=== PATIENT | male | born 1995 | race Two or more races ===

== ENCOUNTER 2018-04-27 12:49 | Emergency (ER) | payer SELFPAY ==
[~2018-04-27] VITALS: Ht 177.8 cm; Wt 72.6 kg
[2018-04-27 12:57] VITALS: BP 120/88
[2018-04-27] MEDS ORDERED: Albuterol/Ipratropium 3ml neb HHN ONE (13:15)
--- NOTE | 2018-04-27 13:16 | Emergency Room Report ---
History of Present Illness General Chief Complaint: General Complaint Source: Patient Present Illness HPI 22-year-old male patient presents ER complaining of chest pain for the past week. Patient reports chest pain is in the middle his chest on the left side, states is worse with leaning to the left side and forward. Reports symptoms began after quitting smoking marijuana one week ago, denies smoking cigarettes or nicotine products. Denies history of heart attack, SC, stroke, heart disease , asthma. Reports difficulty breathing during this time. Denies fever, abdominal pain, headache. Denies drinking, alcohol use, drug use. Denies taking blood thinner medications, states has not taken any medication for relief of symptoms.reports intermittent cough during this time. Denies hemoptysis. Reports dry cough. reports he is not sure if its "anxiety related" . Denies history of anxiety. Denies thoughts of hurting himself or others. Allergies: Coded Allergies: No Known Allergies (Unverified , 04/27/18) Patient History Past Medical History: see triage record Reviewed Nursing Documentation: PMH: Agreed; PSxH: Agreed Nursing Documentation-PMH Past Medical History: No Stated History Review of Systems All Other Systems: negative except mentioned in HPI Physical Exam Vital Signs Date Time Temp Pulse Resp B/P (MAP) Pulse Ox O2 Delivery O2 Flow Rate FiO2 04/27/18 12:55 98.6 87 16 120/88 97 Room Air Sp02 EP Interpretation: reviewed, normal General Appearance: well appearing, no apparent distress, alert, GCS 15, non- toxic Head: normocephalic, atraumatic Eyes: bilateral eye normal inspection, bilateral eye PERRL ENT: hearing grossly normal, normal pharynx, no angioedema, normal voice, uvula midline, moist mucus membranes Neck: full range of motion, no bony tend Respiratory: lungs clear, normal breath sounds, no rhonchi, no respiratory distress, no accessory muscle use, no wheezing, speaking full sentences Cardiovascular #1: regular rate, rhythm, no edema Gastrointestinal: non tender, soft, no mass, non-distended, no guarding, no rebound Genitourinary: no CVA tenderness Musculoskeletal: back normal, digits/nails normal, gait/station normal, normal range of motion, non-tender Neurologic: alert, oriented x3, responsive, motor strength/tone normal, sensory intact Psychiatric: mood/affect normal Skin: no rash Lymphatic: no adenopathy Medical Decision Making PA Attestation Dr. Fraga is my supervising Physician whom patient management has been discussed with. Diagnostic Impression: Primary Impression: Nonspecific chest pain Additional Impressions: Hx of smoking Cough ER Course Pt presents to ED c/o cough and chest pain. DDX considered but are not limited to asthma, viral URI, influenza, bronchitis, pneumonia, SC, costochondritis, pleurisy, drug withdrawal. VITAL SIGNS are WNL, patient is afebrile. Ordered breathing treatment and medication. ER COURSE physical exam benign, no wheezes rails. Due to shortness of breath complaints, ordered breathing treatment for patient. Chest x-ray negative for acute disease, no consolidation or effusion EKG no ST elevations or arrhythmia CBC and CMP unremarkable, mild elevation of glucose Troponin negative UDS positive for THC, otherwise patient to continue avoiding smoking. Patient provided with prednisone Duoneb breathing treatment provided. Following treatment patient states no longer having difficulty with breathing. Patient is resting comfortably in no acute distress. states breathing symptoms were likely "related to anxiousness about lab results". chest x-ray, EKG, troponin, low suspicion for ACS, SC, CHF causing pain symptoms. Pain is reproducible, likely related to cough symptoms, Take Tylenol for pain symptoms. Reports pain symptoms improved following discuss of labs. Provide patient with albuterol inhaler and cough medication discharge. Take Tylenol for pain symptoms. ER precautions given. follow with primary care provider for further testing and treatment as needed. DISCHARGE: -Rx given for Tylenol -Rx provided for Albuterol MDI. -Rx provided for Tessalon Perles At this time pt is stable for d/c to home. Patient is resting comfortably in no acute distress, nontoxic appearing, able to answer questions without difficulty. Patient to take medications as instructed Will provide with patient care instructions and any necessary prescriptions. Care plan and follow-up instructions provided. Patient instructed to follow-up with primary care provider in 3 - 5 days. Patient questions asked and answered. Patient reports understanding and agreement to treatment plan. ER precautions given. Patient instructed to return to ER immediately for any new or worsening of symptoms including but not limited to increasing SOB, persistent fever. - Please note that this Emergency Department Report was dictated using [employer] hat inspector and packer technology software, occasionally this can lead to erroneous entry secondary to interpretation by the dictation equipment. Labs Test 04/27/18 13:35 04/27/18 13:40 Urine Opiates Screen Negative (NEGATIVE) Urine Barbiturates Screen Negative (NEGATIVE) Phencyclidine (PCP) Screen Negative (NEGATIVE) Urine Amphetamines Screen Negative (NEGATIVE) Urine Benzodiazepines Screen Negative (NEGATIVE) Urine Cocaine Screen Negative (NEGATIVE) Urine Marijuana (THC) Screen Positive (NEGATIVE) White Blood Count 6.7 K/UL (4.8-10.8) Red Blood Count 5.80 M/UL (4.70-6.10) Hemoglobin 17.5 G/DL (14.2-18.0) Hematocrit 51.2 % (42.0-52.0) Mean Corpuscular Volume 88 FL (80-99) Mean Corpuscular Hemoglobin 30.1 PG (27.0-31.0) Mean Corpuscular Hemoglobin Concent 34.1 G/DL (32.0-36.0) Red Cell Distribution Width 10.9 % (11.6-14.8) Platelet Count 211 K/UL (150-450) Mean Platelet Volume 12.5 FL (6.5-10.1) Neutrophils (%) (Auto) 47.0 % (45.0-75.0) Lymphocytes (%) (Auto) 44.0 % (20.0-45.0) Monocytes (%) (Auto) 6.4 % (1.0-10.0) Eosinophils (%) (Auto) 0.9 % (0.0-3.0) Basophils (%) (Auto) 1.7 % (0.0-2.0) Sodium Level 144 MMOL/L (136-145) Potassium Level 3.4 MMOL/L (3.5-5.1) Chloride Level 105 MMOL/L (98-107) Carbon Dioxide Level 29 MMOL/L (21-32) Anion Gap 10 mmol/L (5-15) Blood Urea Nitrogen 10 mg/dL (7-18) Creatinine 1.2 MG/DL (0.55-1.30) Estimat Glomerular Filtration Rate > 60 mL/min (>60) Glucose Level 129 MG/DL (74-106) Calcium Level 9.7 MG/DL (8.5-10.1) Total Bilirubin 0.6 MG/DL (0.2-1.0) Aspartate Amino Transf (AST/SGOT) 13 U/L (15-37) Alanine Aminotransferase (ALT/SGPT) 17 U/L (12-78) Alkaline Phosphatase 79 U/L (46-116) Total Creatine Kinase 91 U/L (26-308) Creatine Kinase MB 0.8 NG/ML (0.0-3.6) Creatine Kinase MB Relative Index 0.8 Troponin I 0.000 ng/mL (0.000-0.056) Total Protein 8.9 G/DL (6.4-8.2) Albumin 4.8 G/DL (3.4-5.0) Globulin 4.1 g/dL Albumin/Globulin Ratio 1.2 (1.0-2.7) EKG Diagnostic Results Rate: normal Rhythm: NSR ST Segments: no acute changes ASA given to the pt in ED: Yes MAYRA MenchacaibJeol Luo PA-C Rhythm Strip Diag. Results EP Interpretation: yes Rate: 73 Rhythm: NSR, no PVC's, no ectopy PA Scribe Carloz Luo PA-C Chest X-Ray Diagnostic Results Chest X-Ray Diagnostic Results : Chest X-Ray Ordered: Yes # of Views/Limited/Complete: 1 View Indication: Chest Pain EP Interpretation: Yes PA Xray: Interpretation reviewed, by supervising MD, and agrees with findings. Interpretation: no consolidation, no effusion, no pneumothorax, no acute cardiopulmonary disease Impression: No acute disease MAYRA Scribe Carloz Luo PA-C Last Vital Signs Date Time Temp Pulse Resp B/P (MAP) Pulse Ox O2 Delivery O2 Flow Rate FiO2 04/27/18 12:57 98.6 87 16 120/88 97 Room Air Status: improved Disposition: HOME, SELF-CARE Condition: Stable Scripts Benzonatate* (TESSALON PERLE*) 100 Mg Capsule 100 MG ORAL THREE TIMES A DAY, #25 PERLE Prov: Davy Luo P.A. 04/27/18 Albuterol Sulfate* (ALBUTEROL SULFATE MDI*) 8.5 Gm Hfa.aer.ad 2 PUFF INH Q6H, #1 INH 0 Refills Prov: Davy Luo.ASrinivas 04/27/18 Acetaminophen* (TYLENOL EXTRA STRENGTH*) 500 Mg Tablet 500 MG ORAL Q8H PRN for Prn Headache/Temp > 101, #30 TAB 0 Refills Prov: Davy Luo 04/27/18 Patient Instructions: Cough, Adult, [id number], Generalized Anxiety Disorder , Nonspecific Chest Pain, [id number], Smoking Cessation, Tips for Success, [id number] Additional Instructions: Followup with primary care provider in 3 -5 days. discuss further referral to cardiology as needed. Discuss anxiety symptoms at that time and referral to [facility] professional. Take medications as directed. Patient questions asked and answered. ER precautions given, patient instructed to return to ER immediately for any new or worsening of symptoms. Davy Luo Apr 27, 2018 13:16
[2018-04-27 13:52] LABS: BASOPHILS % (AUTO) 1.7 % (0.0-2.0); EOSINOPHILS % (AUTO) 0.9 % (0.0-3.0); HEMATOCRIT 51.2 % (42.0-52.0); HEMOGLOBIN 17.5 G/DL (14.2-18.0); MEAN CORPUSCULAR VOLUME 88 FL (80-99); MONOCYTES % (AUTO) 6.4 % (1.0-10.0); PLATELET COUNT 211 K/UL (150-450); RED CELL DISTRIBUTION WIDTH 10.9 % (11.6-14.8); WHITE BLOOD COUNT 6.7 K/UL (4.8-10.8)
[2018-04-27 14:04] LABS: ANION GAP 10 mmol/L (5-15); BLOOD UREA NITROGEN 10 mg/dL (7-18); CALCIUM 9.7 MG/DL (8.5-10.1); CARBON DIOXIDE 29 MMOL/L (21-32); CHLORIDE 105 MMOL/L (98-107); CREATININE 1.2 MG/DL (0.55-1.30); POTASSIUM 3.4 MMOL/L (3.5-5.1); SODIUM 144 MMOL/L (136-145)
[2018-04-27 14:19] LABS: ALANINE AMINOTRANSFERASE 17 U/L (12-78); ALBUMIN 4.8 G/DL (3.4-5.0); ALBUMIN/GLOBULIN RATIO 1.2 (1.0-2.7); ALKALINE PHOSPHATASE 79 U/L (46-116); ASPARTATE AMINO TRANSFERASE 13 U/L (15-37); BILIRUBIN,TOTAL 0.6 MG/DL (0.2-1.0); CKMB 0.8 NG/ML (0.0-3.6); CREATINE KINASE 91 U/L (26-308)
[2018-04-27] MEDS ORDERED: TYLENOL EXTRA500 MG ORAL (14:27)
[2018-04-27] MEDS ORDERED: ALBUTEROL SULF8.5 GM INH (14:29)
[2018-04-27] MEDS ORDERED: TESSALON PERLE100 MG ORAL (14:33)
[2018-04-27 14:42] VITALS: BP 132/76
--- NOTE | 2018-04-27 15:13 | Diagnostic Imaging Report ---
. Indication: Chest pain Technique: One view of the chest Comparison: none Findings: Lungs and pleural spaces are clear. Heart size is normal Impression: No acute process
--- NOTE | 2018-04-28 17:02 | Cardiology Report ---
APPROVED REPORT EKG Measurement Heart [id number] Normal sinus rhythm Rightward axis Borderline ECG
== END 2018-04-27 14:43 | disposition home or self-care (01) ==
LOC: EMR 13:30
DX: R07.9 Chest pain, unspecified (principal); R05 Cough; F12.90 Cannabis use, unspecified, uncomplicated; Z87.891 Personal history of nicotine dependence
CPT/HCPCS: 36415; 71045; 80053; 80307; 82550; 82553; 84484; 85025; 93005; 94640; 94664; 99284; J7512; J7620